=== PATIENT | male | born 1980 | race African-American/Black ===

== ENCOUNTER 2017-07-14 18:29 | Emergency (ER) | payer BC, OTHER ==
[~2017-07-14] VITALS: Ht 177.8 cm; Wt 83.9 kg
[~2017-07-14 18:29] MED LIST: FLEXERIL PO; IBUPROFEN 800800 M1 PO; NAPROSYN500 MG PO; NORFLEX100 MG PO
[2017-07-14] MEDS ORDERED: IBUPROFEN 800800 M1 PO (18:52)
[2017-07-14 18:58] LABS: URINE BILIRUBIN NEGATIVE (Negative); URINE BLOOD TRACE (Negative); URINE CLARITY SL CLOUDY; URINE COLOR YELLOW; URINE GLUCOSE-RANDOM* NEGATIVE (Negative); URINE KETONES NEGATIVE (Negative); URINE LEUKOCYTES-REFLEX NEGATIVE (Negative); URINE NITRITE-REFLEX NEGATIVE (Negative); URINE PROTEIN (DIPSTICK) 1+ (Negative); URINE SPECIFIC GRAVITY >= 1.030 (1.005-1.035); URINE UROBILINOGEN 0.2 E.U./dl (0.2-1.0)
[2017-07-14 19:53] LABS: URINE RBC 3-10 Few /HPF (0-2)
[2017-07-14 19:54] LABS: BACTERIA-REFLEX None Seen /HPF (None Seen); CASTS None Seen /LPF (None Seen); CRYSTALS None Seen /LPF (None Seen); SQUAMOUS None Seen /LPF (0-3); URINE WBC-REFLEX 0-5 Rare /HPF (0-5)
== END 2017-07-14 19:28 | disposition home or self-care (01) ==
LOC: ER 18:29
PROVIDERS: Emergency Medicine
DX: N34.2 Other urethritis (principal); N50.812 Left testicular pain; N50.811 Right testicular pain; F17.210 Nicotine dependence, cigarettes, uncomplicated

== ENCOUNTER 2017-08-07 22:08 | Emergency (ER) | payer BC, OTHER ==
[~2017-08-07] VITALS: Ht 177.8 cm; Wt 88.0 kg
[2017-08-07 22:32] LABS: URINE BILIRUBIN NEGATIVE (Negative); URINE BLOOD NEGATIVE (Negative); URINE CLARITY CLEAR; URINE COLOR YELLOW; URINE GLUCOSE-RANDOM* NEGATIVE (Negative); URINE KETONES NEGATIVE (Negative); URINE LEUKOCYTES-REFLEX NEGATIVE (Negative); URINE NITRITE-REFLEX NEGATIVE (Negative); URINE PROTEIN (DIPSTICK) 1+ (Negative); URINE SPECIFIC GRAVITY 1.025 (1.005-1.035); URINE UROBILINOGEN 0.2 E.U./dl (0.2-1.0)
[2017-08-07] MEDS ORDERED: MEN'S MULTI-VI1 EACH PO (22:32)
[2017-08-07 22:41] LABS: MUCUS 0-3 Light strn/LPF (None Seen); SQUAMOUS 4-10 Moderate /LPF (0-3); URINE RBC 0-2 Rare /HPF (0-2)
[2017-08-07 22:42] LABS: HYALINE CASTS 0-3 Few /LPF (None Seen); URINE WBC-REFLEX 0-5 Rare /HPF (0-5)
[2017-08-07 22:48] LABS: CRYSTALS None Seen /LPF (None Seen)
== END 2017-08-07 23:06 | disposition home or self-care (01) ==
LOC: ER 22:08
PROVIDERS: Emergency Medicine
DX: N34.2 Other urethritis (principal); F17.210 Nicotine dependence, cigarettes, uncomplicated

== ENCOUNTER 2018-04-11 08:15 | Emergency (ER) | payer OTHER ==
[~2018-04-11] VITALS: Ht 177.8 cm; Wt 92.5 kg
[~2018-04-11 08:15] MED LIST changes: +MEN'S MULTI-VI1 EACH PO
[2018-04-11 08:32] LABS: URINE BILIRUBIN NEGATIVE (Negative); URINE BLOOD TRACE (Negative); URINE CLARITY CLEAR; URINE COLOR YELLOW; URINE GLUCOSE-RANDOM* NEGATIVE (Negative); URINE KETONES NEGATIVE (Negative); URINE NITRITE-REFLEX NEGATIVE (Negative); URINE PROTEIN (DIPSTICK) NEGATIVE (Negative); URINE UROBILINOGEN 0.2 E.U./dl (0.2-1.0)
[2018-04-11 08:34] LABS: URINE LEUKOCYTES-REFLEX TRACE (Negative)
[2018-04-11 09:24] LABS: CASTS None Seen /LPF (None Seen)
[2018-04-11 09:25] LABS: CRYSTALS None Seen /LPF (None Seen); SQUAMOUS 0-3 Few /LPF (0-3); URINE RBC 0-2 Rare /HPF (0-2); URINE WBC 6-15 Few /HPF (0-5)
[2018-04-11 09:26] LABS: BACTERIA 1-9 Few /HPF (None Seen)
== END 2018-04-11 09:43 | disposition home or self-care (01) ==
LOC: ER 08:15
PROVIDERS: Emergency Medicine
DX: N50.811 Right testicular pain (principal); F17.210 Nicotine dependence, cigarettes, uncomplicated; Z11.3 Encounter for screening for infections with a predominantly sexual mode of transmission

== ENCOUNTER 2018-06-10 07:12 | Emergency (ER) | payer OTHER ==
[~2018-06-10] VITALS: Ht 177.8 cm; Wt 93.0 kg
[2018-06-10 07:35] LABS: URINE CLARITY CLEAR; URINE COLOR YELLOW
[2018-06-10 07:36] LABS: URINE BILIRUBIN NEGATIVE (Negative); URINE BLOOD TRACE (Negative); URINE GLUCOSE-RANDOM* NEGATIVE (Negative); URINE KETONES NEGATIVE (Negative); URINE LEUKOCYTES-REFLEX NEGATIVE (Negative); URINE NITRITE-REFLEX NEGATIVE (Negative); URINE PROTEIN (DIPSTICK) NEGATIVE (Negative); URINE UROBILINOGEN 0.2 E.U./dl (0.2-1.0)
[2018-06-10 08:36] VITALS: BP 123/67
== END 2018-06-10 08:40 | disposition home or self-care (01) ==
LOC: ER 07:12
PROVIDERS: Emergency Medicine
DX: N50.812 Left testicular pain (principal); N50.811 Right testicular pain; F17.210 Nicotine dependence, cigarettes, uncomplicated